=== PATIENT | male | born 1950 | race Caucasian/White ===

== ENCOUNTER 2018-10-01 19:05 | Inpatient (IN) | payer MEDICARE, MEDICAID ==
--- NOTE | 2018-10-01 19:34 | ED Physician Chart ---
ED Chief Complaint/HPI - Patient Information Date Seen:: 10/01/18 Time Seen:: 19:15 Chief Complaint:: aggressive behavior History of Present Illness:: Patient was apparently striking others at his long term facility Allergies:: Allergies Allergy/AdvReac Type Severity Reaction Status Date / Time No Known Allergies Allergy Verified 10/01/18 19:14 Vitals:: Vital Signs - 8 hr 10/01/18 19:15 Temp 98.3 F HR 79 RR 16 BP 130/73 O2 Sat % 100 Historian:: Patient, Medical Records Review:: Transfer documents Reviewed ED Review of Systems - Review of Systems General/Constitutional: No fever, No chills Skin: Skin lesions Head: No headache Eyes: No loss of vision ENT: No earache Neck: No neck pain, No swelling Cardio Vascular: No chest pain Pulmonary: No SOB GI: No nausea, No vomiting, No diarrhea Musculoskeletal: No bone or joint pain Endocrine: No polyuria, No polydipsia Psychiatric: Prior psych history Hematopoietic: No bruising Allergic/Immuno: No urticaria Neurological: No syncope ED Past Medical History - Past Medical History Past Medical History: HTN, Dementia, Other (Gen. anxiety disorder; glaucoma) Family History: Other (not available) Social History: Non Smoker, Care Facility Surgical History: other (not available) Psychiatricy History: Dementia Medication: Reviewed Family Medical History - Family Member Mother History Unknown: Yes ED Physical Exam - Physical Examination General/Constitutional: Well-developed, well-nourished, Alert Other Gen/Cons comments:: Patient is confused; he apparently does not know the correct year Head: Atraumatic Eyes: Lids, conjuctiva normal, PERRL Other Skin comments:: Diffuse maculopapular rash present prominently on the face ENMT: External ears, nose nl Neck: No nuchal rigidity Respiratory: Nl effort/Exclusion, Clear to Auscultation Cardio Vascular: RRR GI: No tenderness/rebounding/guarding, No organomegaly, No hernia, Normal BS's Other GI comments:: Abdomen is distended Other Extremities comments:: Excoriations lower extremities Neuro/Psych: No focal deficits ED Labs/Radiology/EKG Results - Lab Results Results: Abnormal Lab Results 10/01/18 10/01/18 20:35 20:35 WBC 5.6 RBC 3.79 L Hgb 13.2 Hct 38.3 L MCV 100.9 H MCH 34.7 H MCHC Differential 34.4 RDW 13.3 Plt Count 115 L MPV 8.2 Add Manual Diff YES Sodium 137 Potassium 4.2 Chloride 104 Carbon Dioxide 27.2 Anion Gap 10.0 BUN 20 Creatinine 0.9 Est GFR ( Amer) > 60.0 Est GFR (Non-Af Amer) > 60.0 BUN/Creatinine Ratio 22.2 Glucose 95 Calcium 8.7 Total Bilirubin 0.7 AST 97 H ALT 41 Alkaline Phosphatase 144 H Total Protein 6.4 Albumin 2.5 L Globulin 3.9 Albumin/Globulin Ratio 0.6 L Triglycerides 125 Cholesterol 119 LDL Cholesterol Direct 78 HDL Cholesterol 18 L - EKG Interpretations Rate & Rhythm: normal sinus rhythm with a rate of 71 [place]: right axis deviation Comments:: Intraventricular conduction delay ED Septic Shock - . Is Septic Shock (SBP<90, OR Lactate>4 mmol\L) present?: No - <6hrs of presentation: Vital Signs: Vital Signs - 8 hr 10/01/18 19:15 Temp 98.3 F HR 79 RR 16 BP 130/73 O2 Sat % 100 ED Reassessment (Disposition) - Reassessment Reassessment:: Patient's rash should not be scabies because it involves the face Reassessment Condition:: Unchanged - Diagnosis Diagnosis:: Aggressive behavior; dementia; anxiety - Patient Disposition Admitted to:: [facility] Admitting Medical Physician:: Raudel Mayes Admitting Psych Physician:: Elinor Austin Condition at Disposition:: Stable, Unchanged
[2018-10-01 20:53] LABS: BASOPHILE ABSOLUTE 0.1 Th/cumm (0-0.2); EOSINOPHILE ABSOLUTE 0.1 Th/cmm (0.1-0.4); HEMATOCRIT 38.3 % (41.0-60); HEMOGLOBIN 13.2 gm/dL (12-16); LYMPHOCYTE ABSOLUTE 2.3 Th/cmm (1.5-3.0); MEAN CELL VOLUME 100.9 fl (80-99); MEAN CORPUSCULAR HEMOGLOBIN 34.7 pg (27.0-31.0); MEAN CORPUSCULAR HGB CONC 34.4 pg (28.0-36.0); MEAN PLATELET VOLUME 8.2 fl; MONOCYTE ABSOLUTE 0.9 Th/cmm (0.3-1.0); NEUTROPHILE ABSOLUTE 2.2 Th/cmm (1.8-8.0); PLATELET COUNT 115 Th/cmm (150-400); RED BLOOD COUNT 3.79 Mil/cmm (3.80-5.80); RED CELL DISTRIBUTION WIDTH 13.3 % (11.5-20.0); WHITE BLOOD COUNT 5.6 Th/cmm (4.8-10.8)
[2018-10-01 21:05] LABS: ALB/GLOB RATIO 0.6 (1.0-1.8); ALBUMIN 2.5 gm/dL (4.2-5.5); ALKALINE PHOSPHATASE 144 U/L (34-104); BILIRUBIN,TOTAL 0.7 mg/dL (0.3-1.0); BUN - UREA NITROGEN 20 mg/dL (7-25); CALCIUM SERUM 8.7 mg/dL (8.6-10.3); CARBON DIOXIDE 27.2 mEq/L (21.0-31.0); CHLORIDE 104 mEq/L (98-107); CHOLESTEROL 119 mg/dL (<200); CREATININE - SERUM 0.9 mg/dL (0.7-1.3); GFR AFRICAN-AMERICAN > 60.0 ml/min (>90); GFR NON AFRICAN-AMERICAN > 60.0 ml/min; GLUCOSE 95 mg/dL (70-105); HDL -HIGH DENSITY LIPOPROTEIN 18 mg/dL (23-92); POTASSIUM SERUM 4.2 mEq/L (3.5-5.1); SGOT 97 U/L (13-39); SGPT/ALT 41 U/L (7-52); SODIUM SERUM 137 mEq/L (136-145); TOTAL PROTEIN,SERUM 6.4 gm/dL (6.0-8.3); TRIGLYCERIDES 125 mg/dL (<150)
[2018-10-01 22:01] LABS: BAND NEUTROPHILE 0 % (0-10); BASOPHIL 0 % (0-3); EOSINOPHIL 4 % (0-5); LYMPHOCYTE 43 % (20-50); MONOCYTE 11 % (2-10); NEUTROPHILS 42 % (40-80); PLATELET ESTIMATE ADEQUATE (NORMAL); PLATELET MORPHOLOGY NORMAL (NORMAL)
[2018-10-01 23:49] VITALS: BP 124/58
[2018-10-01] MEDS ORDERED: Magnesium Hydroxide (MOM) 30 mL UDC PO PRN (23:50)
[2018-10-02] MEDS: Levothyroxine 0.05 Mg Tab PO SCH (06:40)
--- NOTE | 2018-10-02 12:17 | History and Physical ---
History of Present Illness - HPI Chief Complaint: aggressive behavior HPI: This is a 68-year old male who is a custodial resident admitted to the geropsych unit due to a 1 day history of aggressive behavior towards residents and staff at the snf, upon examining patient in bed, patient refuses to speak. Vital Signs: Last Vital Signs Temp 98.1 F 10/02/18 05:54 Pulse 76 10/02/18 05:54 Resp 20 10/02/18 05:54 BP 122/60 10/02/18 05:54 Pulse Ox 97 10/02/18 05:54 Past Medical History Other History: HTN, Dementia,anxiety disorde glaucoma Family Medical History - Family Member Mother History Unknown: Yes Ethnicity: Unknown Living Status: Unknown Social History Smoke: No Alcohol: None Drugs: None Lives: [facility] - Medications Home Medications: Home Medication Medication Instructions Recorded Type Brimonidine 0.2% Ophth Soln 1 drop EACH EYE BID 10/01/18 History [Alphagan 0.2% Ophth Soln] Divalproex Sodium [Depakote] 250 mg PO BID 10/01/18 History Levothyroxine [Synthroid] 50 mcg PO QDAC 10/01/18 History QUEtiapine Fumarate [SEROquel] 50 mg PO BID 10/01/18 History Sennosides A and B [Senna] 2 tab PO HS 10/01/18 History - Allergies Allergies/Adverse Reactions: Allergies Allergy/AdvReac Type Severity Reaction Status Date / Time No Known Allergies Allergy Verified 10/01/18 19:14 Review of Systems - Review of Systems Constitutional: Report: No Significant Eyes: Report: No Significant Respiratory: Report: No Significant Cardiovascular: Report: No Significant Neurological: Report: No Significant Physical Exam - Physical Exam HEENT: Report: Ears Nose Throat within normal limits Neck: Report: Within normal limits Cardiovascular Systems: Report: +s1/s2 noted, Regular, Rate and Rhythm Respiratory: Report: Breath Sounds are within normal limits Abdomen: Report: Non-tender to palpation Back: Report: Inspection of back is within normal limits. Extremities: Report: Other (no edema noted) Skin: Report: Color of skin is within normal limits, Warm, Dry Neuro/Psych: Report: Depressed affect - Lab Results All Lab Results last 24 hours: Laboratory Results - last 24 hr 10/01/18 10/01/18 10/01/18 20:35 20:35 20:35 WBC 5.6 RBC 3.79 L Hgb 13.2 Hct 38.3 L MCV 100.9 H MCH 34.7 H MCHC Differential 34.4 RDW 13.3 Plt Count 115 L MPV 8.2 Add Manual Diff YES Band Neutrophils % 0 Neutrophils (Manual) 42 Lymphocytes 43 Monocytes 11 H Eosinophils 4 Basophils 0 Platelet Estimate ADEQUATE Platelet Morphology NORMAL RBC Morph Micro Appear NORMAL Sodium 137 Potassium 4.2 Chloride 104 Carbon Dioxide 27.2 Anion Gap 10.0 BUN 20 Creatinine 0.9 Est GFR ( Amer) > 60.0 Est GFR (Non-Af Amer) > 60.0 BUN/Creatinine Ratio 22.2 Glucose 95 Calcium 8.7 Total Bilirubin 0.7 AST 97 H ALT 41 Alkaline Phosphatase 144 H Total Protein 6.4 Albumin 2.5 L Globulin 3.9 Albumin/Globulin Ratio 0.6 L Triglycerides 125 Cholesterol 119 LDL Cholesterol Direct 78 HDL Cholesterol 18 L TSH 3.38 - Assessment Assessment: HTN Dementia anxiety disorder aggressive behavior - Plan Plan: fall precautions continue meds from snf continue current plan of care
[2018-10-03] MEDS: Levothyroxine 0.05 Mg Tab PO SCH (06:33)
--- NOTE | 2018-10-03 12:38 | Internal Medicine Prog Note ---
Internal Medicine Subjective - Subjective Service Date: 10/03/18 Patient seen and examined:: with staff Patient is:: awake, verbal Per staff patient has:: tolerating meds Internal Medicine Objective - Results Result Diagrams: 10/01/18 20:35 10/01/18 20:35 Recent Labs: Laboratory Last Values WBC 5.6 Th/cmm (4.8-10.8) 10/01/18 20:35 RBC 3.79 Mil/cmm (3.80-5.80) L 10/01/18 20:35 Hgb 13.2 gm/dL (12-16) 10/01/18 20:35 Hct 38.3 % (41.0-60) L 10/01/18 20:35 MCV 100.9 fl (80-99) H 10/01/18 20:35 MCH 34.7 pg (27.0-31.0) H 10/01/18 20:35 MCHC Differential 34.4 pg (28.0-36.0) 10/01/18 20:35 RDW 13.3 % (11.5-20.0) 10/01/18 20:35 Plt Count 115 Th/cmm (150-400) L 10/01/18 20:35 MPV 8.2 fl 10/01/18 20:35 Add Manual Diff YES 10/01/18 20:35 Band Neutrophils % 0 % (0-10) 10/01/18 20:35 Neutrophils (Manual) 42 % (40-80) 10/01/18 20:35 Lymphocytes 43 % (20-50) 10/01/18 20:35 Monocytes 11 % (2-10) H 10/01/18 20:35 Eosinophils 4 % (0-5) 10/01/18 20:35 Basophils 0 % (0-3) 10/01/18 20:35 Platelet Estimate ADEQUATE (NORMAL) 10/01/18 20:35 Platelet Morphology NORMAL (NORMAL) 10/01/18 20:35 RBC Morph Micro Appear NORMAL (NORMAL) 10/01/18 20:35 Sodium 137 mEq/L (136-145) 10/01/18 20:35 Potassium 4.2 mEq/L (3.5-5.1) 10/01/18 20:35 Chloride 104 mEq/L (98-107) 10/01/18 20:35 Carbon Dioxide 27.2 mEq/L (21.0-31.0) 10/01/18 20:35 Anion Gap 10.0 (7.0-16.0) 10/01/18 20:35 BUN 20 mg/dL (7-25) 10/01/18 20:35 Creatinine 0.9 mg/dL (0.7-1.3) 10/01/18 20:35 Est GFR ( Amer) > 60.0 ml/min (>90) 10/01/18 20:35 Est GFR (Non-Af Amer) > 60.0 ml/min 10/01/18 20:35 BUN/Creatinine Ratio 22.2 10/01/18 20:35 Glucose 95 mg/dL (70-105) 10/01/18 20:35 Calcium 8.7 mg/dL (8.6-10.3) 10/01/18 20:35 Total Bilirubin 0.7 mg/dL (0.3-1.0) 10/01/18 20:35 AST 97 U/L (13-39) H 10/01/18 20:35 ALT 41 U/L (7-52) 10/01/18 20:35 Alkaline Phosphatase 144 U/L (34-104) H 10/01/18 20:35 Total Protein 6.4 gm/dL (6.0-8.3) 10/01/18 20:35 Albumin 2.5 gm/dL (4.2-5.5) L 10/01/18 20:35 Globulin 3.9 gm/dL 10/01/18 20:35 Albumin/Globulin Ratio 0.6 (1.0-1.8) L 10/01/18 20:35 Triglycerides 125 mg/dL (<150) 10/01/18 20:35 Cholesterol 119 mg/dL (<200) 10/01/18 20:35 LDL Cholesterol Direct 78 mg/dL (75-193) 10/01/18 20:35 HDL Cholesterol 18 mg/dL (23-92) L 10/01/18 20:35 TSH 3.38 uIU/ml (0.34-5.60) 10/01/18 20:35 Valproic Acid 41.6 ug/mL (50.0-100.0) L 10/03/18 06:38 RPR NONREACTIVE (NONREACTIVE) 10/01/18 20:35 - Physical Exam Vitals and I&O: Vital Signs Temp 98.3 F 10/03/18 04:31 Pulse 68 10/03/18 04:31 Resp 18 10/03/18 04:31 BP 130/72 10/03/18 04:31 Pulse Ox 99 10/03/18 04:31 Intake & Output 10/02/18 10/03/18 10/03/18 18:59 06:59 18:59 Intake Total 1000 900 Output Total 6 Balance 1000 894 Intake: Oral 1000 900 Output: Urine 5 Stool 1 Other: # Voids 3 # Bowel Movements 1 Active Medications: Current Medications Acetaminophen (Tylenol) 650 mg PO Q4HR PRN PRN Reason: Mild Pain / Temp above 100 Stop: 11/30/18 23:49 Brimonidine Tartrate (Alphagan 0.2% Oph Soln) 1 drop EACH EYE BID [facility] Stop: 12/01/18 08:59 Last Admin: 10/03/18 09:21 Dose: 1 drop Divalproex Sodium (Depakote Dr) 500 mg PO BID [facility]; Protocol Stop: 12/02/18 08:59 Last Admin: 10/03/18 09:21 Dose: 500 mg Levothyroxine Sodium (Synthroid) 0.05 mg PO QDAC [facility] Stop: 12/01/18 07:29 Last Admin: 10/03/18 06:33 Dose: 0.05 mg Lorazepam (Ativan) 0.5 mg PO Q4HR PRN; Protocol PRN Reason: Agitation Stop: 10/31/18 23:49 Magnesium Hydroxide (Milk Of Magnesia) 30 ml PO HS PRN PRN Reason: Constipation Quetiapine Fumarate (Seroquel) 50 mg PO BID [facility]; Protocol Stop: 12/01/18 08:59 Last Admin: 10/03/18 09:21 Dose: 50 mg Senna (Senna) 17.2 mg PO HS [facility] Stop: 12/01/18 20:59 Last Admin: 10/02/18 20:11 Dose: 17.2 mg Zolpidem Tartrate (Ambien) 5 mg PO HS PRN PRN Reason: Insomnia Stop: 11/30/18 23:49 General: weak, alert HEENT: NC/AT, PERRLA Neck: Supple Lungs: CTAB Cardiovascular: RRR, Normal S1, Normal S2, without murmur Abdomen: soft, non-tender, non-distended, positive bowel sound Extremities: excoriation Neurological: alert Internal Medicine Assmt/Plan - Assessment Assessment: HTN Dementia anxiety disorder aggressive behavior - Plan Plan: fall precautions continue meds from snf continue current plan of care
[2018-10-04] MEDS: Levothyroxine 0.05 Mg Tab PO SCH (06:32)
--- NOTE | 2018-10-04 14:57 | Internal Medicine Prog Note ---
Internal Medicine Subjective - Subjective Service Date: 10/04/18 Patient is:: awake, verbal Per staff patient has:: tolerating meds Internal Medicine Objective - Results Result Diagrams: 10/01/18 20:35 10/01/18 20:35 Recent Labs: Laboratory Last Values WBC 5.6 Th/cmm (4.8-10.8) 10/01/18 20:35 RBC 3.79 Mil/cmm (3.80-5.80) L 10/01/18 20:35 Hgb 13.2 gm/dL (12-16) 10/01/18 20:35 Hct 38.3 % (41.0-60) L 10/01/18 20:35 MCV 100.9 fl (80-99) H 10/01/18 20:35 MCH 34.7 pg (27.0-31.0) H 10/01/18 20:35 MCHC Differential 34.4 pg (28.0-36.0) 10/01/18 20:35 RDW 13.3 % (11.5-20.0) 10/01/18 20:35 Plt Count 115 Th/cmm (150-400) L 10/01/18 20:35 MPV 8.2 fl 10/01/18 20:35 Add Manual Diff YES 10/01/18 20:35 Band Neutrophils % 0 % (0-10) 10/01/18 20:35 Neutrophils (Manual) 42 % (40-80) 10/01/18 20:35 Lymphocytes 43 % (20-50) 10/01/18 20:35 Monocytes 11 % (2-10) H 10/01/18 20:35 Eosinophils 4 % (0-5) 10/01/18 20:35 Basophils 0 % (0-3) 10/01/18 20:35 Platelet Estimate ADEQUATE (NORMAL) 10/01/18 20:35 Platelet Morphology NORMAL (NORMAL) 10/01/18 20:35 RBC Morph Micro Appear NORMAL (NORMAL) 10/01/18 20:35 Sodium 137 mEq/L (136-145) 10/01/18 20:35 Potassium 4.2 mEq/L (3.5-5.1) 10/01/18 20:35 Chloride 104 mEq/L (98-107) 10/01/18 20:35 Carbon Dioxide 27.2 mEq/L (21.0-31.0) 10/01/18 20:35 Anion Gap 10.0 (7.0-16.0) 10/01/18 20:35 BUN 20 mg/dL (7-25) 10/01/18 20:35 Creatinine 0.9 mg/dL (0.7-1.3) 10/01/18 20:35 Est GFR ( Amer) > 60.0 ml/min (>90) 10/01/18 20:35 Est GFR (Non-Af Amer) > 60.0 ml/min 10/01/18 20:35 BUN/Creatinine Ratio 22.2 10/01/18 20:35 Glucose 95 mg/dL (70-105) 10/01/18 20:35 Calcium 8.7 mg/dL (8.6-10.3) 10/01/18 20:35 Total Bilirubin 0.7 mg/dL (0.3-1.0) 10/01/18 20:35 AST 97 U/L (13-39) H 10/01/18 20:35 ALT 41 U/L (7-52) 10/01/18 20:35 Alkaline Phosphatase 144 U/L (34-104) H 10/01/18 20:35 Total Protein 6.4 gm/dL (6.0-8.3) 10/01/18 20:35 Albumin 2.5 gm/dL (4.2-5.5) L 10/01/18 20:35 Globulin 3.9 gm/dL 10/01/18 20:35 Albumin/Globulin Ratio 0.6 (1.0-1.8) L 10/01/18 20:35 Triglycerides 125 mg/dL (<150) 10/01/18 20:35 Cholesterol 119 mg/dL (<200) 10/01/18 20:35 LDL Cholesterol Direct 78 mg/dL (75-193) 10/01/18 20:35 HDL Cholesterol 18 mg/dL (23-92) L 10/01/18 20:35 TSH 3.38 uIU/ml (0.34-5.60) 10/01/18 20:35 Valproic Acid 41.6 ug/mL (50.0-100.0) L 10/03/18 06:38 RPR NONREACTIVE (NONREACTIVE) 10/01/18 20:35 - Physical Exam Vitals and I&O: Vital Signs Temp 98.3 F 10/04/18 14:24 Pulse 83 10/04/18 14:24 Resp 18 10/04/18 14:24 BP 128/68 10/04/18 14:24 Pulse Ox 98 10/03/18 14:00 Intake & Output 10/03/18 10/04/18 10/04/18 19:59 06:59 18:59 Intake Total Balance Intake: Oral Other: # Voids # Bowel Movements Active Medications: Current Medications Acetaminophen (Tylenol) 650 mg PO Q4HR PRN PRN Reason: Mild Pain / Temp above 100 Stop: 11/30/18 23:49 Brimonidine Tartrate (Alphagan 0.2% Oph Sol) 1 drop EACH EYE BID [facility] Stop: 12/01/18 08:59 Last Admin: 10/04/18 08:31 Dose: Not Given Divalproex Sodium (Depakote Dr) 500 mg PO BID [facility]; Protocol Stop: 12/02/18 08:59 Last Admin: 10/04/18 08:32 Dose: Not Given Levothyroxine Sodium (Synthroid) 0.05 mg PO QDAC [facility] Stop: 12/01/18 07:29 Last Admin: 10/04/18 06:32 Dose: 0.05 mg Lorazepam (Ativan) 0.5 mg PO Q4HR PRN; Protocol PRN Reason: Agitation Stop: 10/31/18 23:49 Magnesium Hydroxide (Milk Of Magnesia) 30 ml PO HS PRN PRN Reason: Constipation Quetiapine Fumarate (Seroquel) 50 mg PO BID [facility]; Protocol Stop: 12/01/18 08:59 Last Admin: 10/04/18 08:32 Dose: Not Given Senna (Senna) 17.2 mg PO HS [facility] Stop: 12/01/18 20:59 Last Admin: 10/03/18 20:26 Dose: 17.2 mg Zolpidem Tartrate (Ambien) 5 mg PO HS PRN PRN Reason: Insomnia Stop: 11/30/18 23:49 General: weak, alert HEENT: NC/AT, PERRLA Neck: Supple Lungs: CTAB Cardiovascular: RRR, Normal S1, Normal S2, without murmur Abdomen: soft, non-tender, non-distended, positive bowel sound Extremities: excoriation Neurological: alert Internal Medicine Assmt/Plan - Assessment Assessment: HTN Dementia anxiety disorder aggressive behavior - Plan Plan: fall precautions continue meds from snf continue current plan of care
--- NOTE | 2018-10-04 21:17 | Psychiatric Evaluation ---
DATE OF SERVICE: PSYCHIATRIC INITIAL EVALUATION AND MENTAL STATUS EXAM PATIENT'S AGE: 68. SEX: Male. PHYSICIAN: Dr. Austin. CHIEF COMPLAINT: Agitation and aggressive behavior. HISTORY OF PRESENT ILLNESS: The patient is a 68-year-old male, who was transferred from [facility] because of increased agitation and irritability. The patient has history of schizoaffective disorder. The patient has been intrusive and aggressive towards staff and other patients and has not been able to follow any of staff directions. The patient also has been angry for no apparent reason. Also, talking to self. The patient also was not easy to give him medications and the patient was transferred to the hospital. The patient is still angry and in irritable mood and agitated. He has been taking Seroquel 50 mg twice a day, but it has not been helping to control his temper. PAST PSYCHIATRIC HISTORY: The patient has history of what seems schizoaffective disorder and also a history of what seems to be dementia. PAST MEDICAL HISTORY: The patient has history of hypertension. SOCIAL HISTORY: The patient lives in [facility]. No known alcohol or drug use. ALLERGIES: No known allergies. MENTAL STATUS EXAMINATION: The patient appears his stated age. Anxious. Irritable mood. Flat affect. Thought processes are with flight of ideas and disorganized. The patient did not answer questions regarding hallucinations or delusions, but actively responding to stimuli and talking to self. The patient did not answer question regarding suicide or homicide. The patient is alert, but unable to assess orientation or memory at this time because of his agitation and irritability. Poor insight and poor judgment. ASSESSMENT: PRIMARY DIAGNOSIS: Schizoaffective disorder, bipolar type, severe, with psychosis. SECONDARY DIAGNOSIS: Dementia. MEDICAL DIAGNOSIS: Hypertension. TREATMENT PLAN: We will continue monitoring his behavior and his condition closely. Also, we will continue to work on his aggressive behavior and irritability. Also, continue working on behavioral modification. ESTIMATED LENGTH OF STAY: 5-7 days. THE PATIENT'S STRENGTHS AND WEAKNESSES: The patient's strength is not clear at this time except he seems to be in relatively fair health. Weaknesses is his poor coping skills and poor impulse control. AFTER DISCHARGE PLAN: Outpatient treatment and followup will continue in [facility] and the patient will return to [facility]. CRITERIA FOR DISCHARGE: Better impulse control and stabilizing psychotropic medications. JOB# [id number]
--- NOTE | 2018-10-05 01:30 | Progress Notes ---
DATE: 10/03/2018 SUBJECTIVE: Chart reviewed and the patient interviewed. Also discussed the patient's condition with the staff and reviewed records and labs. The patient is still confused and is still forgetful. The patient also is suspicious and guarded. Also, still have mood swings and easily irritable and easily agitated. Otherwise, the patient did sleep better last night. ASSESSMENT: The patient still have mood swings and still labile. TREATMENT PLAN: We will increase Depakote to 500 mg twice a day and we will continue to follow up closely. JOB# [id number]
--- NOTE | 2018-10-05 04:39 | Progress Notes ---
DATE: SUBJECTIVE: Chart reviewed and the patient interviewed. Also discussed the patient's condition with the staff and reviewed records and labs. The patient is still confused. The patient also is still forgetful and seems to be depressed, also easily agitated and is still has labile affect. Also has mood swings, but seems to be slightly less today since I increased his Depakote yesterday to 500 mg twice a day. Also slept better last night. ASSESSMENT: The patient is less irritable, but still needs close monitoring. TREATMENT PLAN: Continue same dose and continue to work on his ineffective coping and his irritability. Also, we will monitor Depakote blood level and continue to follow up. JOB# [id number]
[2018-10-05] MEDS: Levothyroxine 0.05 Mg Tab PO SCH (06:42)
[2018-10-05 11:00] LABS: CHOLESTEROL 117 mg/dL (<200); HDL -HIGH DENSITY LIPOPROTEIN 17 mg/dL (23-92); TRIGLYCERIDES 117 mg/dL (<150)
--- NOTE | 2018-10-05 13:13 | Internal Medicine Prog Note ---
Internal Medicine Subjective - Subjective Service Date: 10/05/18 Patient is:: awake, verbal Per staff patient has:: tolerating meds Internal Medicine Objective - Results Result Diagrams: 10/01/18 20:35 10/01/18 20:35 Recent Labs: Laboratory Last Values WBC 5.6 Th/cmm (4.8-10.8) 10/01/18 20:35 RBC 3.79 Mil/cmm (3.80-5.80) L 10/01/18 20:35 Hgb 13.2 gm/dL (12-16) 10/01/18 20:35 Hct 38.3 % (41.0-60) L 10/01/18 20:35 MCV 100.9 fl (80-99) H 10/01/18 20:35 MCH 34.7 pg (27.0-31.0) H 10/01/18 20:35 MCHC Differential 34.4 pg (28.0-36.0) 10/01/18 20:35 RDW 13.3 % (11.5-20.0) 10/01/18 20:35 Plt Count 115 Th/cmm (150-400) L 10/01/18 20:35 MPV 8.2 fl 10/01/18 20:35 Add Manual Diff YES 10/01/18 20:35 Band Neutrophils % 0 % (0-10) 10/01/18 20:35 Neutrophils (Manual) 42 % (40-80) 10/01/18 20:35 Lymphocytes 43 % (20-50) 10/01/18 20:35 Monocytes 11 % (2-10) H 10/01/18 20:35 Eosinophils 4 % (0-5) 10/01/18 20:35 Basophils 0 % (0-3) 10/01/18 20:35 Platelet Estimate ADEQUATE (NORMAL) 10/01/18 20:35 Platelet Morphology NORMAL (NORMAL) 10/01/18 20:35 RBC Morph Micro Appear NORMAL (NORMAL) 10/01/18 20:35 Sodium 137 mEq/L (136-145) 10/01/18 20:35 Potassium 4.2 mEq/L (3.5-5.1) 10/01/18 20:35 Chloride 104 mEq/L (98-107) 10/01/18 20:35 Carbon Dioxide 27.2 mEq/L (21.0-31.0) 10/01/18 20:35 Anion Gap 10.0 (7.0-16.0) 10/01/18 20:35 BUN 20 mg/dL (7-25) 10/01/18 20:35 Creatinine 0.9 mg/dL (0.7-1.3) 10/01/18 20:35 Est GFR ( Amer) > 60.0 ml/min (>90) 10/01/18 20:35 Est GFR (Non-Af Amer) > 60.0 ml/min 10/01/18 20:35 BUN/Creatinine Ratio 22.2 10/01/18 20:35 Glucose 95 mg/dL (70-105) 10/01/18 20:35 Calcium 8.7 mg/dL (8.6-10.3) 10/01/18 20:35 Total Bilirubin 0.7 mg/dL (0.3-1.0) 10/01/18 20:35 AST 97 U/L (13-39) H 10/01/18 20:35 ALT 41 U/L (7-52) 10/01/18 20:35 Alkaline Phosphatase 144 U/L (34-104) H 10/01/18 20:35 Total Protein 6.4 gm/dL (6.0-8.3) 10/01/18 20:35 Albumin 2.5 gm/dL (4.2-5.5) L 10/01/18 20:35 Globulin 3.9 gm/dL 10/01/18 20:35 Albumin/Globulin Ratio 0.6 (1.0-1.8) L 10/01/18 20:35 Triglycerides 117 mg/dL (<150) 10/03/18 06:38 Cholesterol 117 mg/dL (<200) 10/03/18 06:38 LDL Cholesterol Direct 79 mg/dL (75-193) 10/03/18 06:38 HDL Cholesterol 17 mg/dL (23-92) L 10/03/18 06:38 TSH 3.38 uIU/ml (0.34-5.60) 10/01/18 20:35 Valproic Acid 41.6 ug/mL (50.0-100.0) L 10/03/18 06:38 RPR NONREACTIVE (NONREACTIVE) 10/01/18 20:35 - Physical Exam Vitals and I&O: Vital Signs Temp 98.3 F 10/04/18 14:24 Pulse 83 10/04/18 14:24 Resp 18 10/04/18 14:24 BP 128/68 10/04/18 14:24 Pulse Ox 98 10/03/18 14:00 Intake & Output 10/04/18 10/05/18 10/05/18 18:59 06:59 18:59 Other: # Voids 2 # Bowel Movements 2 Active Medications: Current Medications Acetaminophen (Tylenol) 650 mg PO Q4HR PRN PRN Reason: Mild Pain / Temp above 100 Stop: 11/30/18 23:49 Brimonidine Tartrate (Alphagan 0.2% Oph Soln) 1 drop EACH EYE BID [facility] Stop: 12/01/18 08:59 Last Admin: 10/05/18 08:33 Dose: 1 drop Divalproex Sodium (Depakote Dr) 500 mg PO BID [facility]; Protocol Stop: 12/02/18 08:59 Last Admin: 10/05/18 08:33 Dose: 500 mg Levothyroxine Sodium (Synthroid) 0.05 mg PO QDAC [facility] Stop: 12/01/18 07:29 Last Admin: 10/05/18 06:42 Dose: Not Given Lorazepam (Ativan) 0.5 mg PO Q4HR PRN; Protocol PRN Reason: Agitation Stop: 10/31/18 23:49 Magnesium Hydroxide (Milk Of Magnesia) 30 ml PO HS PRN PRN Reason: Constipation Quetiapine Fumarate (Seroquel) 50 mg PO BID [facility]; Protocol Stop: 12/01/18 08:59 Last Admin: 10/05/18 08:33 Dose: 50 mg Senna (Senna) 17.2 mg PO HS [facility] Stop: 12/01/18 20:59 Last Admin: 10/04/18 20:20 Dose: 17.2 mg Zolpidem Tartrate (Ambien) 5 mg PO HS PRN PRN Reason: Insomnia Stop: 11/30/18 23:49 General: weak, alert HEENT: NC/AT, PERRLA Neck: Supple Lungs: CTAB Cardiovascular: RRR, Normal S1, Normal S2, without murmur Abdomen: soft, non-tender, non-distended, positive bowel sound Extremities: excoriation Neurological: alert Internal Medicine Assmt/Plan - Assessment Assessment: HTN Dementia anxiety disorder aggressive behavior - Plan Plan: fall precautions continue meds from snf continue current plan of care
--- NOTE | 2018-10-07 22:05 | Discharge Summary ---
DATE OF DISCHARGE: 10/05/2018 FINAL DIAGNOSES/PRIMARY DIAGNOSES: Schizoaffective disorder, bipolar type, severe, with psychotic features. SECONDARY DIAGNOSIS: Dementia. MEDICAL DIAGNOSIS: Hypertension. REASON FOR HOSPITALIZATION: The patient was admitted to the hospital because of increased agitation and irritability in [facility] where he lives. The patient was brought into the hospital. HOSPITAL COURSE: The patient continued to be agitated and in irritable mood. The patient also was restless and anxious. The patient was monitored closely in angry and irritable mood and easily agitated. He also was intrusive and aggressive. The patient was in angry and irritable mood. The patient was started on Seroquel in a dose of 50 mg twice a day. Gradually, the patient's affect was brighter. The patient continued to take Depakote 500 mg twice a day. The patient was less agitated and less irritable. He also was more compliant with treatment and easier to redirect him and the patient was discharged from the hospital. PHYSICAL EXAMINATION: Showed no major medical problems while in the hospital. AFTER DISCHARGE PLANS: The patient discharged from the hospital return to [facility] with plans to follow him up there. EXPECTED OUTCOME AFTER DISCHARGE: Fair if the patient continues to take psychotropic medications and follow up with her discharge plans. [facility]# [id number]
== END 2018-10-05 18:20 | DRG 885 ==
LOC: ER 19:05 → GERO2 21:25
PROVIDERS: ADMIT Psychiatry & Neurology Psychiatry; ATTEND Psychiatry & Neurology Psychiatry
DX: F25.0 Schizoaffective disorder, bipolar type (principal); I10 Essential (primary) hypertension; F03.90 Unspecified dementia, unspecified severity, without behavioral disturbance, psychotic disturbance, mood disturbance, and anxiety; H40.9 Unspecified glaucoma; R21 Rash and other nonspecific skin eruption; F41.9 Anxiety disorder, unspecified; Z79.899 Other long term (current) drug therapy
CPT/HCPCS: 36415-UA; 80053-TC; 80061-TC; 80164-TC; 83036-90; 84443-TC; 85007-TC; 85025-TC; 86592-TC; 93005; Z7610